=== PATIENT | female | born 1955 | race Caucasian/White ===

== ENCOUNTER → 2021-01-16 | Outpatient (CLI) | payer MEDICARE ==
[2021-01-16 13:22] LABS: BUN/CREATININE RATIO 12 (0-10)
== END ==
LOC: LAB 12:18
PROVIDERS: Nurse Practitioner Family
DX: R10.9 Unspecified abdominal pain (principal)
CPT/HCPCS: 36415; 80048

== ENCOUNTER → 2021-01-17 | Outpatient (CLI) | payer MEDICARE | LOC: CT 12:21 | DX: R10.9 Unspecified abdominal pain (principal); K76.0 Fatty (change of) liver, not elsewhere classified; N28.1 Cyst of kidney, acquired | CPT/HCPCS: 74160; Q9967 ==

== ENCOUNTER → 2021-02-13 | Outpatient (CLI) | payer MEDICARE | LOC: MRI 12:28 | DX: K83.8 Other specified diseases of biliary tract (principal); N28.1 Cyst of kidney, acquired | CPT/HCPCS: 74181 ==